=== PATIENT | female | born 1960 | race Caucasian/White ===

== ENCOUNTER 2016-11-29 06:55 | Observation (INO) | payer OTHER ==
[2016-11-29] MEDS ORDERED: POLYETHYLENE GLYCOL 3350 17 GM PKT PO PRN (07:14)
[2016-11-29] MEDS ORDERED: PROMETHAZINE HCL 25 MG/ML INJ IVP PRN (07:14)
[2016-11-29] MEDS ORDERED: traMADol 50 MG TAB PO PRN (07:14)
[2016-11-29] MEDS ORDERED: ONDANSETRON DISINTEGRATING 4 MG TAB PO PRN (07:14)
[2016-11-29] MEDS ORDERED: PHARMACY PAIN CONSULT 1 EA MISC PRN (07:14)
[2016-11-29] MEDS ORDERED: CYCLOBENZAPRINE 10 MG TAB PO PRN (07:14)
[2016-11-29] MEDS ORDERED: METOCLOPRAMIDE 10 MG/2 ML VIAL IVP PRN (07:14)
[2016-11-29] MEDS ORDERED: ONDANSETRON 4 MG/2 ML VIAL IVP PRN (07:14)
[2016-11-29] MEDS ORDERED: BISACODYL 10 MG SUPP PR PRN (07:14)
[2016-11-29] MEDS ORDERED: diphenhydrAMINE 25 MG CAP PO PRN (07:14)
[2016-11-29] MEDS ORDERED: PROMETHAZINE HCL 25 MG SUPPR PR PRN (07:14)
[2016-11-29] MEDS ORDERED: TEMAZEPAM 15 MG CAP PO PRN (07:14)
[2016-11-29] MEDS ORDERED: DIPHENOXYLATE/ATROPINE LOMOTIL 1 TAB PO PRN (07:14)
[2016-11-29] MEDS ORDERED: MAGNESIUM HYDROXIDE 30 ML UDCUP PO PRN (07:14)
[2016-11-29] MEDS ORDERED: LACTULOSE 20 GM/30 ML UDCUP PO PRN (07:14)
[2016-11-29] MEDS ORDERED: DIAZEPAM 5 MG TAB PO PRN (07:14)
[2016-11-29] MEDS ORDERED: ceFAZolin 1 GM/5 ML SYR ONE (07:28)
[2016-11-29] MEDS ORDERED: LR 1,000 ML IV SCH (07:30)
[2016-11-29] MEDS ORDERED: THROMBIN (RECOMBINANT) 5,000 UNIT VIAL TP ONE (07:36)
[2016-11-29] MEDS ORDERED: CALCIUM CHLORIDE 1 GM/10 ML INJ ONE (07:36)
[2016-11-29] MEDS ORDERED: FAMOTIDINE 20 MG TAB PO ONE (08:00)
[2016-11-29] MEDS ORDERED: CEFAZOLIN 2 GM/DEXTR 100 ML IV ONE (08:00)
[2016-11-29] MEDS ORDERED: ROPI/epiNEPH/KETOROLAC/morphINE JOINT COCKTAIL IU ONE (08:00)
[2016-11-29] MEDS ORDERED: ACETAMINOPHEN 325 MG TAB PO ONE (08:00)
[2016-11-29] MEDS ORDERED: CHLORHEXIDINE GLUC HIBICLENS 118 ML BTL TP ONE (08:00)
[2016-11-29] MEDS ORDERED: MIDAZOLAM 2 MG/2 ML VIAL ONE (09:44)
[2016-11-29] MEDS ORDERED: PROPOFOL/EMULSION 500 MG/50 ML BOTTLE IV ONE ×2 (09:48→11:02)
[2016-11-29] MEDS ORDERED: ROPIVACAINE HCL 150 MG/30 ML INJ ONE (10:59)
--- NOTE | 2016-11-29 12:52 | DX ---
Left Knee, Two Views 12:08 p.m. Indication: Recent knee arthroplasty. Technique: Crosstable lateral and AP views. Comparison: CT lower extremity dated October 18, 2016 Findings: A unicompartmental hemiarthroplasty in the medial tibiofemoral compartment is anatomically aligned. No perihardware fracture. Skin abiodun are present anteriorly along the mid thigh and mid ca lf. Expected intra-articular gas. Impression: Good positioning of unicompartmental hemiarthroplasty.
[2016-11-29] MEDS: ACETAMINOPHEN 325 MG TAB PO SCH ×3 (15:21→23:31)
[2016-11-29] MEDS: SENNOSIDES/DOCUSATE SODIUM TAB PO SCH ×2 (15:38→20:52)
[2016-11-29] MEDS ORDERED: ceFAZolin 2 GM/DEXTROSE 100 ML IV SCH (18:00)
[2016-11-29] MEDS: ceFAZolin 2 GM in D5W 100 ML IV SCH (18:20)
[2016-11-29] MEDS: ASPIRIN 325 MG TAB PO SCH (20:52)
[2016-11-29] MEDS: FAMOTIDINE 20 MG TAB PO SCH (20:52)
[2016-11-30] MEDS: oxyCODONE IR 5 MG TAB PO PRN ×3 (00:34→10:35)
[2016-11-30] MEDS: ceFAZolin 2 GM in D5W 100 ML IV SCH (02:04)
[2016-11-30 04:36] VITALS: RESP 16
[2016-11-30 05:30] LABS: HEMATOCRIT 36.4 % (38.0-47.0); HEMOGLOBIN 12.1 g/dL (12.6-16.3)
[2016-11-30] MEDS: ACETAMINOPHEN 325 MG TAB PO SCH (05:41)
[2016-11-30] MEDS ORDERED: NON-FORMULARY NEW DRUG (Zolpidem Tartrate [Ambien 10 Mg] 10 MG) PO PRN (06:53)
[2016-11-30] MEDS ORDERED: NON-FORMULARY NEW DRUG (Clonazepam [Klonopin] 2 MG) PO PRN (06:53)
[2016-11-30 07:40] VITALS: BP 132/56; PULSE 81; TEMP 97.6; O2SAT 98
[2016-11-30] MEDS: SENNOSIDES/DOCUSATE SODIUM TAB PO SCH (07:40)
[2016-11-30] MEDS: ASPIRIN 325 MG TAB PO SCH (07:41)
[2016-11-30] MEDS: FAMOTIDINE 20 MG TAB PO SCH (07:42)
[2016-11-30] MEDS ORDERED: clonazePAM 1 MG TAB PO PRN (07:43)
[2016-11-30] MEDS ORDERED: ZOLPIDEM TARTRATE 5 MG TAB PO PRN (07:44)
--- NOTE | 2016-11-30 07:44 | PDIAF ---
- Diagnosis Diagnosis: left knee djd Code Status: Full Code - Medication Management Discharge Medications: Medications to Continue on Transfer Zolpidem Tartrate [Ambien 10 mg] 10 mg PO HS PRN #10 tablet 02/26/15 [Last Taken 1 Month Ago] Bisacodyl [Dulcolax] 10 mg PO HS 10/26/16 [Last Taken 1 Day Ago] Estrogens, Conjugated [Premarin] 0.45 mg PO HS 10/26/16 [Last Taken 1 Day Ago] clonAZEPAM [Klonopin] 2 mg PO HS 10/26/16 [Last Taken 1 Day Ago] traMADol [Ultram 50 mg (*)] 50 mg PO Q4 PRN 10/26/16 [Last Taken 1 Day Ago] clonAZEPAM [Klonopin] 2 mg PO DAILY PRN 11/29/16 [Last Taken Unknown] Aspirin [Aspirin 325 mg (*)] 325 mg PO DAILY #0 tab 11/30/16 [Last Taken Unknown ] Diazepam [Valium 5 MG (*)] 5 mg PO Q6HRS PRN #30 tab 11/30/16 [Last Taken Unknown] oxyCODONE IR [Oxycodone Ir (*)] 5 - 10 mg PO Q3HRS PRN #70 tab 11/30/16 [Last Taken Unknown] Discharge Medications: Refer to the Discharge Home Medication list for PRN reason. - Orders Services needed: Physical Therapy Diet Recommendation: no restrictions on diet Diet Texture: Regular Texture Diet Activity/Weight Bearing Restrictions: wbat. rom as liz. may shower without bandage. daily dressing change with pressure dressing. f/u at two weeks. seek attn for increasing pain, cp, sob, leg pain, drainage or other focal complaint. bipin tran x 2 weeks. aspirin 325 mg po daily - Follow Up Care Current Providers and Referrals: Senthil Blackburn MD [Primary Care Provider] -
--- NOTE | 2016-11-30 07:46 | SOAPPROG ---
SOAP Progress Note Assessment/Plan: Assessment: s/p left knee med alexx Plan: wbat rom as liz dvt precautions d/c once cleared by pt 11/30/16 07:44 Subjective: mild pain no cp or sob Objective: Vital Signs Temp Pulse Resp BP Pulse Ox 36.4 C 81 16 132/56 H 98 11/30/16 07:38 11/30/16 07:38 11/30/16 07:38 11/30/16 07:38 11/30/16 07:38 Laboratory Results 11/30/16 04:25 11/29/16 11/30/16 12/01/16 05:59 05:59 05:59 Intake Total 2800 Output Total 410 Balance 2390 dressing intact intact pf,df,ehl toes warm and pink neg homans adrian xrays stable alignment no fx or lucencty ICD10 Worksheet Patient Problems: Problems Problem Status Diagnosed Arthritis of knee, left Acute - ICD10 Problem Qualifiers (1) Arthritis of knee, left
[2016-11-30] MEDS ORDERED: ESTROGENS,CONJUGATED 0.3 MG TAB PO SCH (21:00)
[2016-11-30] MEDS ORDERED: NON-FORMULARY NEW DRUG (Clonazepam [Klonopin] 2 MG) PO SCH (21:00)
[2016-11-30] MEDS ORDERED: BISACODYL 5 MG EC TAB PO SCH (21:00)
[2016-11-30] MEDS ORDERED: clonazePAM 1 MG TAB PO SCH (21:00)
[2016-11-30] MEDS ORDERED: ESTROGENS CONJUGATED 0.45 MG PO SCH (21:00)
== END 2016-11-30 10:48 | disposition home or self-care (01) ==
LOC: FSGY 06:55 → F3N 13:11
PROVIDERS: ADMIT Orthopaedic Surgery; ATTEND Orthopaedic Surgery
PROC: 8E0YXBZ Computer Assisted Procedure of Lower Extremity (ICD-10-PCS; principal; 2016-11-29 09:45)
PROC: 0SRD0JZ Replacement of Left Knee Joint with Synthetic Substitute, Open Approach (ICD-10-PCS; principal; 2016-11-29 09:45)
PROC: 3E0U3GB Introduction of Recombinant Bone Morphogenetic Protein into Joints, Percutaneous Approach (ICD-10-PCS; 2016-11-29 09:45)
DX: M17.12 Unilateral primary osteoarthritis, left knee (principal); Z86.711 Personal history of pulmonary embolism; F43.10 Post-traumatic stress disorder, unspecified; F32.9 Major depressive disorder, single episode, unspecified; F41.9 Anxiety disorder, unspecified; Z79.01 Long term (current) use of anticoagulants
CPT/HCPCS: 0232T; 20985; 27446; 73560; 97110; 97116; 97161; 97165; 97530; C1713; C1776; G8978; G8979; G8980; G8987; G8988; G8989; J0171; J0690; J1885; J2250; J2704; J2795

== ENCOUNTER → 2016-12-28 | Outpatient (CLI) | payer OTHER | LOC: BMCIMAGING 11:54 | PROVIDERS: ATTEND Orthopaedic Surgery | DX: S89.92XA Unspecified injury of left lower leg, initial encounter (principal) ==

== ENCOUNTER → 2017-01-12 | Outpatient (CLI) | payer OTHER | LOC: BMCIMAGING 09:07 | PROVIDERS: ATTEND Orthopaedic Surgery | DX: Z09 Encounter for follow-up examination after completed treatment for conditions other than malignant neoplasm (principal); Z96.652 Presence of left artificial knee joint; M25.762 Osteophyte, left knee ==

== ENCOUNTER → 2017-02-18 | Outpatient (CLI) | payer OTHER | LOC: FIMAGING 09:32 | PROVIDERS: ATTEND Internal Medicine | DX: R94.5 Abnormal results of liver function studies (principal); R74.8 Abnormal levels of other serum enzymes | CPT/HCPCS: 86708-90; G0472 ==

== ENCOUNTER → 2017-02-23 | Outpatient (CLI) | payer OTHER | LOC: BMCIMAGING 10:28 | PROVIDERS: ATTEND Orthopaedic Surgery | DX: Z47.1 Aftercare following joint replacement surgery (principal); Z96.652 Presence of left artificial knee joint ==

== ENCOUNTER → 2017-06-02 | Outpatient (CLI) | payer OTHER | LOC: BMCIMAGING 08:37 | PROVIDERS: ATTEND Orthopaedic Surgery | DX: Z47.1 Aftercare following joint replacement surgery (principal); Z96.652 Presence of left artificial knee joint ==

== ENCOUNTER → 2017-08-03 | Outpatient (CLI) | payer OTHER | LOC: BMCIMAGING 09:47 | PROVIDERS: ATTEND Physician Assistant | DX: M25.561 Pain in right knee (principal); M25.562 Pain in left knee; Z96.653 Presence of artificial knee joint, bilateral ==

== ENCOUNTER → 2017-10-04 | Outpatient (CLI) | payer OTHER | LOC: FCPNEURO 20:00 | PROVIDERS: ATTEND Psychiatry & Neurology Sleep Medicine | DX: G47.00 Insomnia, unspecified (principal) ==

== ENCOUNTER → 2018-01-02 | Outpatient (CLI) | payer OTHER | LOC: BMCIMAGING 10:42 | PROVIDERS: ATTEND Orthopaedic Surgery | DX: Z47.1 Aftercare following joint replacement surgery (principal); Z96.652 Presence of left artificial knee joint ==

== ENCOUNTER → 2018-07-01 | Outpatient (CLI) | payer OTHER | LOC: BMCIMAGING 16:09 | PROVIDERS: ATTEND Family Medicine | DX: S82.091A Other fracture of right patella, initial encounter for closed fracture (principal) ==